=== PATIENT | female | born 1930 ===

== ENCOUNTER 2017-06-27 07:20 | Day surgery (SDC) | payer MEDICARE ==
[2016-07-12 13:14] VITALS: BMI 25.4
[2017-06-27] MEDS ORDERED: Propofol 10 mg/ml Inj (20 ML) ONE (09:02)
[2017-06-27] MEDS ORDERED: Lactated Ringer's 1,000 ML IV SCH (09:30)
[2017-06-27 11:02] VITALS: BP 161/68; PULSE 63; RESP 16; TEMP 97.7; O2SAT 99
== END 2017-06-27 10:56 | disposition home or self-care (01) ==
LOC: ENDO 07:20
PROVIDERS: ATTEND Internal Medicine Gastroenterology
DX: K29.50 Unspecified chronic gastritis without bleeding (principal); K29.80 Duodenitis without bleeding; I10 Essential (primary) hypertension; E78.5 Hyperlipidemia, unspecified
CPT/HCPCS: 43239; 88305; 88342; J2001; J2704; J3010; J7040; J7120

== ENCOUNTER 2019-02-13 10:41 | Outpatient (CLI) | payer MEDICARE | END 2019-02-13 10:42 | disposition home or self-care (01) | LOC: RAD 10:41 | DX: R41.3 Other amnesia (principal) ==